=== PATIENT | female | born 1935 | race Caucasian/White ===

== ENCOUNTER → 2016-12-13 | Outpatient (CLI) | payer OTHER ==
--- NOTE | 2016-12-13 16:54 | MG ---
cc: MADINA PARKER MD Lab No: [id number] Date: 12/13/2016 Age: 81 Sex: F Race: DATE OF : 1935. HISTORY: An 81-year-old with history of syncope, collapse, dementia. DESCRIPTION OF RECORD: 6 to 7 hertz theta activity, 10 to 30 microvolts, minimal driving with photic stimulation. Frequent eye movement artifact. Generalized slowing suggestive of drowsy state followed by bursts of 2 to 3 Hz delta generalized activity. Good EEG variability reactivity. Single lead EKG showing sinus rhythm. INTERPRETATION: Minimal encephalopathy and drowsy state. No seizure activity. Clinical correlation. Madina Parker MD /[facility] /4:39 PM /4:49 PM
== END ==
LOC: HEEG 08:21
PROVIDERS: ATTEND Psychiatry & Neurology Neurology
DX: R55 Syncope and collapse (principal); G31.84 Mild cognitive impairment of uncertain or unknown etiology
CPT/HCPCS: 95819